=== PATIENT | female | born 1995 | race Caucasian/White ===

== ENCOUNTER 2020-04-02 10:03 | Outpatient (REF) | payer MEDICAID, SELFPAY | END 2020-04-02 10:04 | disposition home or self-care (01) | LOC: HO.LAB 10:03 | PROVIDERS: Visit Provider Internal Medicine | DX: Z13.89 Encounter for screening for other disorder (principal) | CPT/HCPCS: C9803; U0003 ==

== ENCOUNTER 2020-04-14 15:40 | Outpatient (REF) | payer MEDICAID, SELFPAY | END 2020-04-14 15:41 | disposition home or self-care (01) | LOC: HO.LAB 15:40 | PROVIDERS: Visit Provider Internal Medicine | DX: Z20.828 Contact with and (suspected) exposure to other viral communicable diseases (principal) | CPT/HCPCS: C9803; U0003 ==

== ENCOUNTER 2021-04-29 09:41 | Outpatient (REF) | payer MEDICAID, SELFPAY ==
--- NOTE | 2021-04-29 09:46 | EMG_ITS ---
This is a 26-year-old woman who has had right upper extremity pain and numbness for many years. Her neurological examination is normal. No Tinel or Phalen sign. Rule out carpal tunnel syndrome. Nerve conduction EMG study: Normal electrodiagnostic study of the right upper extremity with no evidence of carpal tunnel syndrome or nerve entrapment. Normal EMG of the right C5-T1 innervated muscles. MD MARLENE Paredes/BROOKE / [id number]
== END 2021-04-29 09:42 | disposition home or self-care (01) ==
LOC: HO.NEURO 09:41
PROVIDERS: Visit Provider Nurse Practitioner
DX: M25.531 Pain in right wrist (principal)
CPT/HCPCS: 95885; 95910